=== PATIENT | male | born 1990 | race Caucasian/White ===

== ENCOUNTER 2021-04-22 22:33 | Emergency (ER) | payer SELFPAY ==
[~2021-04-22] VITALS: Ht 182.9 cm; Wt 84.8 kg
[2021-04-22 23:30] VITALS: BP 136/70
--- NOTE | 2021-04-22 23:36 | NUR ---
strep swab sent to lab
[2021-04-23] MEDS ORDERED: PRED50TA PO (00:20)
--- NOTE | 2021-04-23 00:29 | NUR ---
Patient discharged to home in stable condition. Written and verbal after care instructions given. Patient verbalizes understanding of instruction. RX GIVEN
== END 2021-04-23 00:30 | disposition home or self-care (01) ==
LOC: ER 22:33
DX: J02.8 Acute pharyngitis due to other specified organisms (principal); Z79.899 Other long term (current) drug therapy
CPT/HCPCS: 86403-TC; 87070-TC